=== PATIENT | male | born 1970 | race Caucasian/White ===

== ENCOUNTER 2016-12-03 14:30 | Emergency (ER) | payer SELFPAY ==
[~2016-12-03] VITALS: Ht 165.1 cm; Wt 86.2 kg
[~2016-12-03 14:30] MED LIST: COMBIVENT INH14.7 G1 IN; DARVOCET-N 1001 EACH PO; FLEXERIL10 MG PO; IBUPROFEN800 MG PO; LORTAB 5/500 501 TAB PO; NAPROSYN 500MG500 MG PO; NOMEDS *; NORCO 325 MG-51 TAB PO; PREDNISONE 10MG10 MG PO; PREDNISONE 20MG20 MG PO; PROTONIX 40MG T40 MG PO; RESTORIL 30MG C30 MG PO; SPIRIVA HA1 PUFF/INH IH; SYMBICORT1 AE1 IH; TESSALON PERLE100 MG PO; VENTOLIN H0.09 MG/Ac IH; VOLTAREN75 MG PO
--- NOTE | 2016-12-03 15:01 | RADIOLOGY REPORT PS360 ---
CHEST(2 VIEWS-NOT PORTABLE) INDICATION: Productive cough COMPARISON: PA and lateral chest 01/10/2014 FINDINGS: The lung tinajero are well expanded and appear clear of infiltrate. The cardiomediastinal silhouette and vascularity are normal. The costophrenic angles are clear. The bony thorax is normal. IMPRESSION: Normal chest.
[2016-12-03] MEDS ORDERED: ZITHROMAX Z PA250 MG PO (15:38)
[2016-12-03] MEDS ORDERED: THE MEDICINE S200 M1 PO (15:38)
[2016-12-03] MEDS ORDERED: MEDROL 4MG. DOSE4 MG PO (15:38)
--- NOTE | 2016-12-03 15:40 | Urgent Treatment Center Report ---
History of Present Issue Date/Time Seen by Provider 12/03/16 1528 Visit Reason Pt arrived:Walked Presenting Problem:PT STATES COUGH FOR TWO WEEKS. STATES COUGH IS PRODUCTIVE WITH GREEN SPUTUM. Location if Accident: Onset of symptoms date/time:/ or onset unknown for:MEDICAL HX UNKNOWN Have you (or family members/close friends) recently traveled outside the [place]? N If Yes, where/when: Have you had exposure to infectious disease within the past month? TB? Other? Specify: Patient state that he has had a cough for over two weeks now states that at times he coughing up thick greenish color mucus and at times non-productive. States that he was worried that he may have pneumonia so he came in to get checked and he just has not been feeling well ALLERGIES Coded Allergies: No Known Allergies (07/28/16) Home Medications Active Scripts Ibuprofen (Ibuprofen 800MG) 800 MG PO Q8HP PRN pain #15 TAB Prov: 07/28/16 HYDROCODONE/ACETAMINOPHEN ([place] 5-325 Tablet) 1 TAB PO Q6HP PRN pain #10 TAB Prov: 07/28/16 Albuterol-Ipratropium (Combivent Inhaler) 2 PUFF IN QID #1 INH Prov: 01/10/14 Reported Medications BUDESONIDE/FORMOTEROL FUMARATE (Symbicort 160-4.5 Mcg Inhaler) 1 PUFF IH BID #10 Tiotropium [place] (Spiriva) 1 PUFF IH DAILY #30 History Medical History General CAD? No Angina: Yes [place]: Yes Hypertension? No Hyperlipidemia? No CHF? No DVT? No PE? No COPD? Yes Asthma? No Anemia? No GERD? No Gastric ulcers? No GI Bleed? No Hernia? No Thyroid Problems? No Hypothyroidism? No CVA? No Seizures? No Diabetes? No Renal Insuffiency? No UTI? No Stones? Yes BPH? No GB Disease: Yes Nephritic Syndrome? No Asplenia? No Hepatitis? No Sickle Cell Disease? No Arthritis? No Migraines? No Cataracts? No Glaucoma? No MRSA? No HIV? No TB? No Anxiety? No Depression? No Cancer? No More? Yes Additional hx: EMPHYSEMA Immunization HX DT/Tetanus 1-4 Years Ago Flu Refused Pneumonia Never Had Surgical Hx Previous Surgery?Y [id number] HEART CATH GALLBLADDER Family History Family HX Diabetes No CAD Yes Hypertension Yes Hyperlipidemia No Cancer No TB No Social History Smoking Hx Smoker: Current Every Day Smoker Tobacco: Yes Type Cigarettes Packs/day 2 1/2 - 3 Packs Alcohol Alcohol: No Review of Systems All Other Systems Reviewed and Negative ENT nose discharge, nose congestion, throat pain. Respiratory cough Comment Cough, nasal congestion and drainage, feels like it is running down the back of his throat Physical Exam Vital Signs Vital Signs Date Time Temp Pulse Resp B/P Pulse O2 O2 Flow FiO2 Ox Delivery Rate 12/03 1442 97.8 79 20 149/82 96 General Appearance normal appearance, WD/WN, no apparent distress Ear, Nose, Throat Throat red and irritated, greenish drainage from nose Respiratory Status Yes: trachea midline, chest symmetrical, non tender chest. No: respiratory distress. 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 No XRAY/CT/US XRAY/CT/US XRAY chest XR interpretation by reviewed by me Xray Results normal/NAD Departure Departure Time of Disposition 1538 Disposition DC Home or Self Care(routine) Clinical Impression Primary Impression: Upper respiratory infection Qualifiers: URI type: unspecified URI Qualified Code: J06.9 - Acute upper respiratory infection, unspecified Condition STABLE Patient Instructions Cough, DI for Cough -- Adult, Guaifenesin Additional Instructions FOllow up with family doctor Over the counter Motrin or Tylenol as needed for fever or pain Drink plenty of fluids Return if needed Discharge Counseling Counseled pt/family regarding diagnosis, test results, medications/RX, home care, follow up needs Prescriptions Current Visit Scripts Azithromycin (Zithromycin (Z-CORRINE) 250MG Tab) 250 MG PO DAILY #6 TAB TAKE TWO (2) TABLETS ON DAY 1, THEN ONE (1) TABLET DAY #2 THRU #5 Methylprednisolone (Medrol Dose Corrine) 4 MG PO UD #1 CORRINE TAKE DIRECTED ON PACKAGING Guaifenesin (Coughtab) 200 MG PO Q4HP PRN cough #20 TAB at 1537
--- NOTE | 2016-12-03 15:40 | Urgent Treatment Center Report ---
History of Present Issue Date/Time Seen by Provider 12/03/16 1528 Visit Reason Pt arrived:Walked Presenting Problem:PT STATES COUGH FOR TWO WEEKS. STATES COUGH IS PRODUCTIVE WITH GREEN SPUTUM. Location if Accident: Onset of symptoms date/time:/ or onset unknown for:MEDICAL HX UNKNOWN Have you (or family members/close friends) recently traveled outside the [place]? N If Yes, where/when: Have you had exposure to infectious disease within the past month? TB? Other? Specify: Patient state that he has had a cough for over two weeks now states that at times he coughing up thick greenish color mucus and at times non-productive. States that he was worried that he may have pneumonia so he came in to get checked and he just has not been feeling well ALLERGIES Coded Allergies: No Known Allergies (07/28/16) Home Medications Active Scripts Ibuprofen (Ibuprofen 800MG) 800 MG PO Q8HP PRN pain #15 TAB Prov: 07/28/16 HYDROCODONE/ACETAMINOPHEN ([place] 5-325 Tablet) 1 TAB PO Q6HP PRN pain #10 TAB Prov: 07/28/16 Albuterol-Ipratropium (Combivent Inhaler) 2 PUFF IN QID #1 INH Prov: 01/10/14 Reported Medications BUDESONIDE/FORMOTEROL FUMARATE (Symbicort 160-4.5 Mcg Inhaler) 1 PUFF IH BID #10 Tiotropium [place] (Spiriva) 1 PUFF IH DAILY #30 History Medical History General CAD? No Angina: Yes [place]: Yes Hypertension? No Hyperlipidemia? No CHF? No DVT? No PE? No COPD? Yes Asthma? No Anemia? No GERD? No Gastric ulcers? No GI Bleed? No Hernia? No Thyroid Problems? No Hypothyroidism? No CVA? No Seizures? No Diabetes? No Renal Insuffiency? No UTI? No Stones? Yes BPH? No GB Disease: Yes Nephritic Syndrome? No Asplenia? No Hepatitis? No Sickle Cell Disease? No Arthritis? No Migraines? No Cataracts? No Glaucoma? No MRSA? No HIV? No TB? No Anxiety? No Depression? No Cancer? No More? Yes Additional hx: EMPHYSEMA Immunization HX DT/Tetanus 1-4 Years Ago Flu Refused Pneumonia Never Had Surgical Hx Previous Surgery?Y [id number] HEART CATH GALLBLADDER Family History Family HX Diabetes No CAD Yes Hypertension Yes Hyperlipidemia No Cancer No TB No Social History Smoking Hx Smoker: Current Every Day Smoker Tobacco: Yes Type Cigarettes Packs/day 2 1/2 - 3 Packs Alcohol Alcohol: No Review of Systems All Other Systems Reviewed and Negative ENT nose discharge, nose congestion, throat pain. Respiratory cough Comment Cough, nasal congestion and drainage, feels like it is running down the back of his throat Physical Exam Vital Signs Vital Signs Date Time Temp Pulse Resp B/P Pulse O2 O2 Flow FiO2 Ox Delivery Rate 12/03 1442 97.8 79 20 149/82 96 General Appearance normal appearance, WD/WN, no apparent distress Ear, Nose, Throat Throat red and irritated, greenish drainage from nose Respiratory Status Yes: trachea midline, chest symmetrical, non tender chest. No: respiratory distress. 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 No XRAY/CT/US XRAY/CT/US XRAY chest XR interpretation by reviewed by me Xray Results normal/NAD Departure Departure Time of Disposition 1538 Disposition DC Home or Self Care(routine) Clinical Impression Primary Impression: Upper respiratory infection Qualifiers: URI type: unspecified URI Qualified Code: J06.9 - Acute upper respiratory infection, unspecified Condition STABLE Patient Instructions Cough, DI for Cough -- Adult, Guaifenesin Additional Instructions FOllow up with family doctor Over the counter Motrin or Tylenol as needed for fever or pain Drink plenty of fluids Return if needed Discharge Counseling Counseled pt/family regarding diagnosis, test results, medications/RX, home care, follow up needs Prescriptions Current Visit Scripts Azithromycin (Zithromycin (Z-CORRINE) 250MG Tab) 250 MG PO DAILY #6 TAB TAKE TWO (2) TABLETS ON DAY 1, THEN ONE (1) TABLET DAY #2 THRU #5 Methylprednisolone (Medrol Dose Corrine) 4 MG PO UD #1 CORRINE TAKE DIRECTED ON PACKAGING Guaifenesin (Coughtab) 200 MG PO Q4HP PRN cough #20 TAB at 1531
[2016-12-03 15:42] VITALS: BP 149/82
== END 2016-12-03 15:42 | disposition home or self-care (01) ==
LOC: UTC 14:30
DX: J06.9 Acute upper respiratory infection, unspecified (principal); Z72.0 Tobacco use